=== PATIENT | female | born 1955 | race Caucasian/White ===

== ENCOUNTER 2017-10-10 12:32 | Observation (INO) ==
[2017-10-10 14:39] VITALS: BMI 22.6
--- NOTE | 2017-10-10 15:06 | Ultrasound Report ---
Indication: Left sided weakness PROCEDURE: US carotid doppler BI: Encounter: Initial Comparison: None. TECHNIQUE: Murillo-scale, color flow, and spectral pulsed Doppler imaging of the carotid and vertebral arteries of both sides of the neck was performed with segmental recordings of velocity spectra. FINDINGS: The vessel nole are smooth. Longitudinal color flow images reveal all vessels to be patent with a normal flow direction. The velocity spectra are of normal shape without flow acceleration or spectral broadening. The following peak systolic and end-diastolic velocities were measured (units given in cm/s): Right Common Carotid: 85/29 Prox Internal Car: 75/26 Mid Internal Carotid: 94/29 Dist Internal Carotid: 123/40 External Carotid: 70 Vertebral Artery: 72 Systolic Ratio: 1.5 Left Common Carotid: 80 Prox Internal Car: 68/19 Mid Internal Carotid: 82/29 Dist Internal Carotid: 123/51 External Carotid: 59 Vertebral Artery: 81 Systolic Ratio: 1.5 IMPRESSION: Normal to mild internal carotid artery stenosis, bilaterally, with estimated percent stenosis between 0% and 50% using NASCET criteria adapted to duplex ultrasound. Bilateral patent antegrade vertebral arteries. .
[2017-10-10] MEDS ORDERED: DiphenhydrAMINE 25 MG CAPSULE PO PRN (15:31)
[2017-10-10] MEDS ORDERED: ACETAMINOPHEN 325 MG TABLET PO PRN (15:31)
[2017-10-10] MEDS ORDERED: ONDANSETRON 4 MG TABLET PO PRN (15:31)
--- NOTE | 2017-10-10 16:12 | History & Physical Report ---
History of Present Illness Date: 10/10/17 Chief complaint: left arm/leg weak HPI: Yamilet Bynum is a 62 year old woman who is directly admitted from [facility] in [facility]. She was admitted on 10/09/17 for hypokalemia (K was 2.6) and stroke-like symptoms. Head CT showed a punctate area of increased attenuation in the right frontal lobe. Repeat CT scan on 10/10/17 was negative for acute processes and the punctate focus of increased attenuation was thought to represent a cortical vessel. CXR showed linear atelectasis to the left lower lung and a density in the left perihilar region thought to be an overlap of structures/vessels. Her potassium improved to 3.1 via IV bolus and her renal function was stable (BUN 10 Cr .6, Na 146, CO2 26). With her abnormal CT scan and persistent symptoms, she was transferred to [facility] for MRI and further evaluation. Yamilet states that she noticed left facial numbness/tingling and her mouth tasted like copper around 0930 on 10/09/17. She also noticed left arm/leg weakness and decreased left hand coordination. No facial droop or slurred speech. No confusion or behavioral changes. She recalls tripping frequently at work on 10/06/17. She has a tension headache that she attributes to being worried (about a grandson). No visual loss, diplopia, or blurred vision. She had mild SOA a few evenings ago that resolved after turning on a fan - since then no SOA or chest pain. No palpitations or fast heart rate. No cough/cold, but does have allergy problems. Denies fever/chills. No dizziness/ lightheadedness. She has intermittent nausea, but no constipation or diarrhea and no hematochezia. No dysuria, frequency or hematuria. No leg swelling but has been sleeping upright in a recliner since 2013 since she had "double pneumonia". She develops congestion in her chest and feels like she can't breathe, even to this day. 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 Review of Systems All systems PM: 10-point ROS was reviewed, no additional remarkable complaints except - Constitutional Constitutional: Present: headache(s). Absent: chills, fever(s) - EENMT Eyes: Present: requires corrective lenses. Absent: blurry vision, change in vision, diplopia Balance: Absent: vertigo Nose: Present: allergies. Absent: obstruction Mouth/Throat: Absent: sore throat, scratchy throat, changes in swallowing - Cardiovascular Cardiovascular: Absent: chest pain, palpitations Vascular: Absent: pedal edema - Respiratory Respiratory: Absent: cough, dyspnea - Gastrointestinal Gastrointestinal: Absent: abdominal pain, change in bowel habits, constipation, diarrhea, dyspepsia, hematochezia, nausea, vomiting - Genitourinary Genitourinary: Absent: dysuria, hematuria, urinary frequency - Musculoskeletal Musculoskeletal: Absent: back pain - Integumentary/Breasts Integumentary: Absent: rash, wounds - Neurological Neurological: Present: as per HPI, abnormal gait, headache(s), lack of coordination, paresthesias (left side of face), weakness. Absent: confusion, dizziness, frequent falls - Psychiatric Psychiatric: Present: abnormal sleep pattern. 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 Hysterectomy. Cholecystectomy. Appendectomy. 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 Current residence: Apartment/Private Home Medications Home Medications Medication Instructions Recorded Confirmed Type Acetaminophen [Tylenol] 650 mg PO Q8H PRN 10/10/17 10/10/17 History Aspirin Chewable [ASA] 81 mg PO DAILY 10/10/17 10/10/17 History DiphenhydrAMINE [Benadryl] 1 cap PO Q6H PRN 10/10/17 10/10/17 History Ondansetron HCl [Zofran] 4 mg PO Q4H PRN 10/10/17 10/10/17 History Allergies Allergy/AdvReac Type Severity Reaction Status Date / Time codeine Allergy Unknown Verified 10/10/17 14:11 erythromycin base Allergy Unknown Verified 10/10/17 14:11 morphine Allergy Unknown Verified 10/10/17 14:11 tetanus toxoid, adsorbed Allergy Unknown Verified 10/10/17 14:11 ketorolac [From Toradol] Allergy Verified 10/10/17 14:11 tramadol [From Ultram] Allergy Verified 10/10/17 14:11 Exam Vital Signs: Temperature 97.8 F 10/10/17 14:16 Pulse Rate 60 10/10/17 14:16 Respiratory Rate 17 10/10/17 14:16 Blood Pressure 144/67 H 10/10/17 14:16 Pulse Oximetry 99 10/10/17 14:16 Height/Weight/BMI: Height 1.7 m Weight 65.7 kg Body Mass Index 22.6 - Constitutional Present: no acute distress, well nourished, well developed, thin - Routine HEENT Exam Head: Present: normocephalic Eye: Present: EOMI, PERRL, normal accommodation. Absent: conjunctival icterus, scleral injection ENT: Present: oropharynx clear. Absent: dentition normal (decay and missing teeth) - Routine Neck Exam Present: supple. Absent: lymphadenopathy - Routine Respiratory Exam Present: CTA bilaterally - Routine Cardiovascular Exam Present: RRR, S1, S2, murmur (1-2/6 soft systolic murmur) - Routine Abdominal Exam Present: soft, normoactive bowel sounds, non distended, non tender - Routine Extremities Exam Present: no edema, pulses intact, normal capillary refill. Absent: calf tenderness - Routine Back/Spine/Pelvis Exam Back/Spine: Present: full ROM - Routine Skin Exam Present: intact, dry, warm, ecchymosis (arms) - Routine Neurological Exam Present: alert, oriented X3, CN II-XII intact (possible subtle delay in raising left eyebrow), motor deficit (left deltoid, bicep, tricep, range rider 4-/5 compared to right 5/5; left foot dorsi/plantar flexion 4-/5 compared to right 5/5), pronator drift (left), vision grossly intact, hearing grossly intact. Absent: altered mental status, facial asymmetry, normal speech - Routine Psychiatric Exam Present: normal affect, normal thought process, cooperative Results - Labs CBC & Chem 7: 10/10/17 18:25 Assessment and Plan (1) CVA (cerebral vascular accident) Current visit: Yes Status: Acute Assessment and Plan: IMPRESSION Suspect acute CVA - presenting with left arm/leg weakness and coordination deficits Hypokalemia Tobaccoism PLAN Admit, observation status, under the hospitalist service. Stroke w/u ordered -Echo done & pending. -Carotid doppler - normal to mild internal stenosis. -MRI head - pending. -Lipid panel - check in am; start statin after resulted. -Start ASA daily. -PT/OT & speech consults. -Smoking cessation counseling. -consider neuro consult. Hypokalemia -recheck K and mg later this afternoon. -tele. Advanced directives -none. -Strongly recommended to designate DPOA. -Full code. DVT Prophylaxis: SCD's Resuscitation Status: Full Code - Physician Narrative Physician: Cirilo Wallis MD Narrative: Date: 10/10/17 Time: 2029 I have independently interviewed and examined pt. Chart reviewed. Case discussed with my MATERIALS AND CORROSION ENGINEER. Care plan developed with my supervision; agree with above. Admitted secondary to right sided weakness with concern for stroke. Patient did notice more weakness on the left side of her body (arm/leg) this am. Vision and hearing stable. Speech normal. No headaches. No recent fall/trauma. Does note she feels cold frequently. Decreased appetite with nausea. Breathing stable. Not having palpitations or chest pain. Does smoke (but has been trying to cut down). Lungs: clear bilaterally, no distress on RA. CV: regular without murmur. Neuro: left side with weakness and less coordination as compared to right. MRI: encephalomalacia Assessment Left hemiparesis - suspicious for CVA Tobacco dependently Recent hypokalemia Plan: OBS admission. PT/OT/Speech evaluation. ECHO/Doppler. Check Lipids. ASA therapy. Encourage tobacco cessation. Will start NS with 20 KCl at 75 cc/hr to help hydration and maintain potassium. SCD for DVT prevention. Recheck lab in am. Full code as per her requests. Hospital Course Summary Disclaimer: The visit summary below is not to be considered part of the above Progress Note. Hospital Course: 10/10/17 16:50 IMPRESSION Suspect acute CVA - presenting with left arm/leg weakness and coordination deficits Hypokalemia Tobaccoism PLAN Admit, observation status, under the hospitalist service. Stroke w/u ordered -Echo done & pending. -Carotid doppler - normal to mild internal stenosis. -MRI head - pending. -Lipid panel - check in am; start statin after resulted. -Start ASA daily. -PT/OT & speech consults. -Smoking cessation counseling. -consider neuro consult. Hypokalemia -recheck K and mg later this afternoon. -tele. Advanced directives -none. -Strongly recommended to designate DPOA. -Full code.
[2017-10-10] MEDS ORDERED: GADOTERIDOL 279.3mg/ml - 15ml vial IVP ONE (16:36)
[2017-10-10] MEDS ORDERED: SALINE FLUSH 10ml SYRINGE ONE (16:36)
[2017-10-10] MEDS ORDERED: NICOTINE 14 MG PATCH TD PRN (16:46)
--- NOTE | 2017-10-10 17:12 | Magnetic Resonance Report ---
Indication: left sided weakness PROCEDURE: MR head/brain wo/w con: Encounter: Initial Comparison: None. Technique: Multiplanar T1 and T2-weighted sequences, diffusion and FLAIR weighted sequences were obtained precontrast. Post contrast T1-weighted sequences were obtained after the uneventful IV administration of 12 cc of ProHance intravenously. FINDINGS: There is moderate prominence of ventricles and sulci compatible with cortical atrophy. 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 There is no definite focus of high signal on the diffusion-weighted sequences to suggest an acute ischemic process. There is no mass, mass effect, or midline shift. No evidence for intracranial hemorrhage. No intra or extra-axial fluid collections. There is no abnormal area of enhancement, including no abnormal area of meningeal enhancement. The included portions of the paranasal and mastoid sinuses are clear. 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 No evidence for acute intracranial hemorrhage, infarct or mass lesion. .
[2017-10-10] MEDS: NS with KCL 20 mEq 1,000 ML IV SCH (22:54)
[2017-10-10] MEDS ORDERED: SALINE FLUSH 10ml SYRINGE IV PRN (23:03)
[2017-10-11 07:52] VITALS: O2SAT 98
[2017-10-11] MEDS ORDERED: ASPIRIN 81 MG CHEWABLE TABLET PO SCH (09:00)
[2017-10-11] MEDS ORDERED: NICOTINE PATCH REMOVAL TD SCH (09:00)
[2017-10-11] MEDS ORDERED: SENNA + DOCUSATE TABLET PO PRN (11:26)
--- NOTE | 2017-10-11 11:30 | Progress Note ---
- Date 10/11/17 Subjective: Yamilet is seen today in follow up. Reports that she is not feeling well today. Does have some nausea, which is new for her. Continues to have a very mild LE at times. Some constipation- last BM was Friday. No abdominal pain. RN reports pt. requesting ES APAP as she uses that at home. No other c/o reported. Objective Vital signs: Temperature 97.4 F 10/11/17 07:46 Pulse Rate 68 10/11/17 08:00 Respiratory Rate 16 10/11/17 07:46 Blood Pressure 129/69 10/11/17 07:46 Pulse Oximetry 98 10/11/17 07:46 Height/Weight/BMI: Height 1.7 m Weight 65.4 kg Body Mass Index 22.6 - Constitutional Present: no acute distress, average body habitus, cooperative Comments: Appears to NFW - Routine HEENT Exam Head: Present: normocephalic, atraumatic Eye: Present: EOMI, PERRL ENT: Present: mucous membranes moist - Routine Respiratory Exam Present: CTA bilaterally, distant breath sounds. Absent: rales, rhonchi, wheezes - Routine Cardiovascular Exam Present: RRR, S1, S2, no murmur - Routine Abdominal Exam Present: soft, normoactive bowel sounds, non distended, non tender - Routine Extremities Exam Present: no edema, non tender, full ROM - Routine Musculoskeletal Exam Musculoskeletal: Present: normal strength, moving extremities well - Routine Skin Exam Present: intact, dry, warm - Routine Neurological Exam Present: alert, oriented X3, moving all extremities - Routine Psychiatric Exam Present: normal affect, cooperative Results - Labs CBC & Chem 7: 10/11/17 05:10 10/11/17 05:10 - Echocardiogram Echocardiogram: echo pending - Impressions MRI brain IMPRESSION: 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 No evidence for acute intracranial hemorrhage, infarct or mass lesion. Carotid doppler IMPRESSION: Normal to mild internal carotid artery stenosis, bilaterally, with estimated percent stenosis between 0% and 50% using NASCET criteria adapted to duplex ultrasound. Bilateral patent antegrade vertebral arteries. . Assessment and Plan (1) CVA (cerebral vascular accident) Current visit: Yes Status: Acute Assessment and Plan: IMPRESSION Suspect acute CVA - presenting with left arm/leg weakness and coordination deficits Hypokalemia Tobaccoism Abnormal CXR at OSH Nausea Constipation Dyslipidemia PLAN *TIA vs. Stroke No obvious stroke on MRI. Small vessel ischemia is noted. Continue ASA. Add Statin. Lipid panel reviewed- mild dyslipidemia. BP is stable. *Hypokalemia/Dehydration Continue IVF. K now normalized. Suspect she is not eating well- BUN is low. *LE-APAP *Nausea/Constipation PRN antiemetic. Add PRN laxatives. May need to add acid iap displays analyst if persists. *Repeat CXR today. AM labs ordered. Home soon? DVT Prophylaxis: SCD's Resuscitation Status: Full Code - Physician Narrative Physician: Cirilo Wallis MD Narrative: Date: 10/11/17 Time: Argelia Wallis Have independently interviewed and examined pt. Chart reviewed. Case discussed with CM and my ASSISTANT PROFESSOR OF CHEMISTRY. Care plan developed with my supervision; agree with above. Doing better today-more movements to left arm and leg. Working on the exercises therapy taught her-encouraged to improve her strength. Wanting to stop smoking to help protect her health. Nausea improved. Minor LE improved. Breathing well. Lungs: decreased, no distress CV: regular Neuro: decreased evs tech strength on left as compared to right, but improving from yesterday. Plan: Continue with ASA, discussed about starting statin - patient agreeable. Encourage no smoking. Continue activities as outlined by therapy. As medically improving, can discharge to home. See orders for details. Hospital Course Summary Disclaimer: The visit summary below is not to be considered part of the above Progress Note. Hospital Course: 10/10/17 16:50 IMPRESSION Suspect acute CVA - presenting with left arm/leg weakness and coordination deficits Hypokalemia Tobaccoism PLAN Admit, observation status, under the hospitalist service. Stroke w/u ordered -Echo done & pending. -Carotid doppler - normal to mild internal stenosis. -MRI head - pending. -Lipid panel - check in am; start statin after resulted. -Start ASA daily. -PT/OT & speech consults. -Smoking cessation counseling. -consider neuro consult. Hypokalemia -recheck K and mg later this afternoon. -tele. Advanced directives -none. -Strongly recommended to designate DPOA. -Full code. 10/11/17 11:37 10/11/17 *TIA vs. Stroke No obvious stroke on MRI. Small vessel ischemia is noted. Continue ASA. Add Statin. Lipid panel reviewed- mild dyslipidemia. BP is stable. *Hypokalemia/Dehydration Continue IVF. K now normalized. Suspect she is not eating well- BUN is low. *LE-APAP *Nausea/Constipation PRN antiemetic. Add PRN laxatives. May need to add acid iap displays analyst if persists. *Repeat CXR today. AM labs ordered. Home soon?
[2017-10-11] MEDS ORDERED: ACETAMINOPHEN 325 MG TABLET PO PRN (11:33)
[2017-10-11] MEDS: NS with KCL 20 mEq 1,000 ML IV SCH (12:10)
--- NOTE | 2017-10-11 13:10 | XRay Report ---
INDICATION: follow up abnormal CXR PROCEDURE: CHEST 2-VIEWS UPRIGHT (PA & LAT) Encounter: Initial COMPARISON: None FINDINGS: There is elevation and eventration of the left hemidiaphragm. There is some opacity in the left costophrenic angle that could be due to scarring or acute infiltrate. Right lung is grossly clear. No pneumothorax or pleural effusion. Heart size and mediastinal contours are within normal limits. Pulmonary vascularity appears normal. Cholecystectomy clips. Impression: Blunting of left costophrenic angle could be due to chronic pleural thickening/scarring or early infiltrate. Recommend clinical and laboratory correlation. .
[2017-10-11 15:17] VITALS: BP 140/66; RESP 20; TEMP 98.2
[2017-10-11 16:08] VITALS: PULSE 72
--- NOTE | 2017-10-11 16:17 | Discharge Summary ---
Discharge Information Date of admission: 10/10/17 13:55 Anticipated date of discharge: 10/11/17 Attending Physician: Cirilo Wallis MD Primary care physician: Lala Knight APRN Consults: PT/OT/Speech - Discharge Diagnosis (1) CVA (cerebral vascular accident) Status: Acute Admission diagnosis Suspect acute CVA - presenting with left arm/leg weakness and coordination deficits Discharge diagnosis Acute CVA Left Hemiparesis Associated conditions and complications Hypokalemia (at outside hospital) Tobaccoism Abnormal CXR at OSH Nausea Constipation Dyslipidemia - Procedures Procedures: ECHO - results pending at time of discharge - Laboratory Labs: Admit Lab 10/10/17 18:25 Potassium 3.6 Magnesium 1.8 10/11/17 05:10 10/11/17 05:10 Discharge Lab 10/11/17 05:10 Magnesium 1.8 Total Bilirubin 0.20 AST 16 ALT 27 Alkaline Phosphatase 47 C-Reactive Protein < 5.0 Total Protein 6.0 L Albumin 3.3 L Lipid profile 10/11/17 05:10 Triglycerides 76 Cholesterol 147 LDL Cholesterol, Calc 95.8 HDL Cholesterol 36 L Cholesterol/HDL Ratio 4.1 H - Radiology Radiology: Date of Exam: 10/10/17 PROCEDURE: MR head/brain wo/w con FINDINGS: There is moderate prominence of ventricles and sulci compatible with cortical atrophy. 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 There is no definite focus of high signal on the diffusion-weighted sequences to suggest an acute ischemic process. There is no mass, mass effect, or midline shift. No evidence for intracranial hemorrhage. No intra or extra-axial fluid collections. There is no abnormal area of enhancement, including no abnormal area of meningeal enhancement. The included portions of the paranasal and mastoid sinuses are clear. 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 No evidence for acute intracranial hemorrhage, infarct or mass lesion. Date of Exam: 10/10/17 PROCEDURE: US carotid doppler BI FINDINGS: The vessel noel are smooth. Longitudinal color flow images reveal all vessels to be patent with a normal flow direction. The velocity spectra are of normal shape without flow acceleration or spectral broadening. The following peak systolic and end-diastolic velocities were measured (units given in cm/s): Right Common Carotid: 85/29 Prox Internal Car: 75/26 Mid Internal Carotid: 94/29 Dist Internal Carotid: 123/40 External Carotid: 70 Vertebral Artery: 72 Systolic Ratio: 1.5 Left Common Carotid: 80 Prox Internal Car: 68/19 Mid Internal Carotid: 82/29 Dist Internal Carotid: 123/51 External Carotid: 59 Vertebral Artery: 81 Systolic Ratio: 1.5 IMPRESSION: Normal to mild internal carotid artery stenosis, bilaterally, with estimated percent stenosis between 0% and 50% using NASCET criteria adapted to duplex ultrasound. Bilateral patent antegrade vertebral arteries. Date of Exam: 10/11/17 PROCEDURE: CHEST 2-VIEWS UPRIGHT (PA & LAT) FINDINGS: There is elevation and eventration of the left hemidiaphragm. There is some opacity in the left costophrenic angle that could be due to scarring or acute infiltrate. Right lung is grossly clear. No pneumothorax or pleural effusion. Heart size and mediastinal contours are within normal limits. Pulmonary vascularity appears normal. Cholecystectomy clips. Impression: Blunting of left costophrenic angle could be due to chronic pleural thickening/scarring or early infiltrate. Recommend clinical and laboratory correlation. History of Present Illness HPI: Yamilet Bynum is a 62 year old woman who is directly admitted from [facility] in [facility]. She was admitted on 10/09/17 for hypokalemia (K was 2.6) and stroke-like symptoms. Head CT showed a punctate area of increased attenuation in the right frontal lobe. Repeat CT scan on 10/10/17 was negative for acute processes and the punctate focus of increased attenuation was thought to represent a cortical vessel. CXR showed linear atelectasis to the left lower lung and a density in the left perihilar region thought to be an overlap of structures/vessels. Her potassium improved to 3.1 via IV bolus and her renal function was stable (BUN 10 Cr .6, Na 146, CO2 26). With her abnormal CT scan and persistent symptoms, she was transferred to [facility] for MRI and further evaluation. Yamilet states that she noticed left facial numbness/tingling and her mouth tasted like copper around 0930 on 10/09/17. She also noticed left arm/leg weakness and decreased left hand coordination. No facial droop or slurred speech. No confusion or behavioral changes. She recalls tripping frequently at work on 10/06/17. She has a tension headache that she attributes to being worried (about a grandson). No visual loss, diplopia, or blurred vision. She had mild SOA a few evenings ago that resolved after turning on a fan - since then no SOA or chest pain. No palpitations or fast heart rate. No cough/cold, but does have allergy problems. Denies fever/chills. No dizziness/ lightheadedness. She has intermittent nausea, but no constipation or diarrhea and no hematochezia. No dysuria, frequency or hematuria. No leg swelling but has been sleeping upright in a recliner since 2013 since she had "double pneumonia". She develops congestion in her chest and feels like she can't breathe, even to this day. 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 For complete details of the H&P refer to that document. Objective Vital signs: Temperature 98.2 F 10/11/17 15:16 Pulse Rate 72 10/11/17 16:00 Respiratory Rate 20 10/11/17 15:16 Blood Pressure 140/66 H 10/11/17 15:16 Pulse Oximetry 98 10/11/17 15:16 Height/Weight/BMI: Height 1.7 m Weight 65.4 kg Body Mass Index 22.6 Hospital Course This is a general summary of the patient's hospital course. For more details refer to the complete medical record. Hospital course: 10/10/17 16:50 IMPRESSION Suspect acute CVA - presenting with left arm/leg weakness and coordination deficits Hypokalemia Tobaccoism PLAN Admit, observation status, under the hospitalist service. Stroke w/u ordered -Echo done & pending. -Carotid doppler - normal to mild internal stenosis. -MRI head - pending. -Lipid panel - check in am; start statin after resulted. -Start ASA daily. -PT/OT & speech consults. -Smoking cessation counseling. -consider neuro consult. Hypokalemia -recheck K and mg later this afternoon. -tele. Advanced directives -none. -Strongly recommended to designate DPOA. -Full code. 10/11/17 *TIA vs. Stroke No obvious stroke on MRI. Small vessel ischemia is noted. Continue ASA. Add Statin. Lipid panel reviewed- mild dyslipidemia. BP is stable. Clinically improving. *Hypokalemia/Dehydration Continue IVF. K now normalized. Suspect she is not eating well- BUN is low. *LE-APAP *Nausea/Constipation PRN antiemetic. Add PRN laxatives. May need to add acid supervisor international reservations if persists. Will discharge to home as medically doing well. Continue ASA 81mg daily. Start Lipitor 40mg at night. Tobacco cessation strongly encouraged - patient verbalizes willingness to stop smoking. ECHO result pending - will need to be followup up with at PCP apt in 1 week. F/U with PCP in 1 week. Review ECHO findings. Routine liver enzyme monitoring due to statin medication. See orders for detail. Time spent with patient: discharge greater than 30 minutes Discharge Plan - Discharge Disposition Discharge Date: 10/11/17 Disposition: 01 Discharged Home, Self-Care *Condition: Stable Reason For Visit (Visit label in EMR): left sided weakness - Discharge Medications *Discharge Medications: New Atorvastatin [Lipitor] 40 mg PO HS #30 tab Continue Acetaminophen [Tylenol] 650 mg PO Q8H PRN PRN Reason: pain DiphenhydrAMINE [Benadryl] 1 cap PO Q6H PRN PRN Reason: allergies Ondansetron HCl [Zofran] 4 mg PO Q4H PRN PRN Reason: nausea Aspirin Chewable [ASA] 81 mg PO DAILY - Discharge Packet/Instructions *Diet: Regular *Activity: As tolerated - continue to work on exercises given to you by PT. *Pain Management/Treatment: Continue home pain medications *Wound Care: n/a *Expected Signs/Symptoms: Improvement of your strength and functional status *Notify Physician if: Temp > 100.4. New or worsening neurological changes. *During Business Hours Contact: Bharti Knight *After Business Hours Contact: Bharti Knight *Pending Lab/Results: Follow up w/Provider - Referrals/Follow Up *Referrals/Follow Up: Lala Knight, LAST [employer]OURER [Advanced Practice Nurse] - 1 Week (Hospital follow up for left sided weakness. ECHO results pending. Statin started - routine liver enzyme monitoring recommended. ) - Patient Handouts - Dismissal Complete Discharge Instructions are:: Complete Physician Narrative - Narrative Physician: Cirilo Wallis MD Attestation Narrative: Date: 10/11/17 Time: 161 I have independently interviewed and examined patient prior to discharge. See my progress note from today for details. Medically stable for discharge to home.
[2017-10-11] MEDS ORDERED: ATORVASTATIN 40 MG TABLET PO SCH (21:00)
--- NOTE | 2017-10-14 13:30 | Echocardiogram ---
DATE OF STUDY 10/10/2017 INDICATIONS Left-sided weakness,? stroke, ? cardiac source of embolus. TECHNICAL QUALITY Technically somewhat difficult study. 2D, M-mode, Doppler echocardiographic images were submitted for interpretation. FINDINGS 1. CARDIAC CHAMBERS: All cardiac chamber measurements are normal. Aortic root diameter is normal. 2. LEFT VENTRICLE: Wall thickness is normal. Wall motion analysis is normal. Systolic function is normal. EF estimated about 60%-65%. 3. VALVES: Aortic and mitral valve exhibit mild sclerotic changes. Valve excursion is normal. Mild mitral annular calcification is present. Tricuspid valve structure and motion appear normal, normal valve excursion. 4. DOPPLER: Mild diastolic dysfunction. Normal flow velocities throughout. Trace regurgitation involving tricuspid valve, pulmonic valve and possibility mitral valve, none of hemodynamic significance. 5. Systolic pulmonary artery pressure of 28 mmHg. 6. Normal central venous pressure. 7. No evidence of pericardial effusion, intracardiac masses, thrombi, vegetations or shunts. . IMPRESSION 1. Technically somewhat difficult study. 2. Normal LV size and systolic function. Normal diastolic function. 3. No significant valvular dysfunction. 4. No evidence of intracardiac masses, thrombi, vegetations or shunts. 5. Bubble study was not performed. 6. Patient was in sinus rhythm during the study. [facility]
== END 2017-10-11 16:35 | disposition home or self-care (01) ==
LOC: MED
PROVIDERS: ADMIT Hospitalist; ATTEND Hospitalist